=== PATIENT | female | born 1975 | race Caucasian/White ===

== ENCOUNTER 2021-08-11 13:18 | Outpatient (CLI) | payer OTHER, SELFPAY ==
--- NOTE | 2021-08-11 13:20 | ECG_ITS ---
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 Measurements Intervals [place] Rate: 84 P: 56 ID: [id number] QRS: 66 QRSD: 82 T: 46 QT: 367 QTc: 434 Interpretive Statements SINUS RHYTHM INTERPRETATION BASED ON A DEFAULT AGE OF 40 YEARS No previous ECG available for comparison Electronically Signed On 08-11-2021 23:07:01 CDT by Rosa Robles M.D. [id number]
== END 2021-08-11 13:19 | disposition home or self-care (01) ==
PROVIDERS: Visit Provider Internal Medicine
DX: E03.9 Hypothyroidism, unspecified (principal)
CPT/HCPCS: 36415; 72202; 73120; 73620; 80053; 82550; 82784; 83516; 84100; 84443; 85025; 85651; 86140; 86160; 86162; 86200; 86235; 86255; 86376; 86704; 86803; 87340; 93005

== ENCOUNTER → 2021-10-17 08:04 | Outpatient (BNVA) | payer MEDICAID, SELFPAY | PROVIDERS: Referring Provider Internal Medicine; Visit Provider Internal Medicine | DX: E03.9 Hypothyroidism, unspecified (principal); E03.8 Other specified hypothyroidism; E06.3 Autoimmune thyroiditis; R13.10 Dysphagia, unspecified; H53.2 Diplopia; F17.200 Nicotine dependence, unspecified, uncomplicated | CPT/HCPCS: 99204 ==

== ENCOUNTER → 2021-10-17 12:06 | Outpatient (BNVA) | payer MEDICAID, SELFPAY | PROVIDERS: Visit Provider Internal Medicine Pulmonary Disease | DX: R06.09 Other forms of dyspnea (principal); R91.8 Other nonspecific abnormal finding of lung field; R76.8 Other specified abnormal immunological findings in serum; G47.19 Other hypersomnia; M05.79 Rheumatoid arthritis with rheumatoid factor of multiple sites without organ or systems involvement; Z82.49 Family history of ischemic heart disease and other diseases of the circulatory system; F17.210 Nicotine dependence, cigarettes, uncomplicated | CPT/HCPCS: 99204 ==

== ENCOUNTER → 2021-11-09 08:47 | Outpatient (BNVA) | payer MEDICAID, SELFPAY | PROVIDERS: Visit Provider Internal Medicine | DX: M05.79 Rheumatoid arthritis with rheumatoid factor of multiple sites without organ or systems involvement (principal); R13.10 Dysphagia, unspecified; R76.8 Other specified abnormal immunological findings in serum; E06.3 Autoimmune thyroiditis; Z11.1 Encounter for screening for respiratory tuberculosis | CPT/HCPCS: 36415; 80053; 82657; 82955; 85025; 85651; 86480; 99214 ==

== ENCOUNTER 2021-11-30 12:51 | Outpatient (CLI) | payer MEDICAID, SELFPAY ==
--- NOTE | 2021-11-30 13:37 | PFTS_ITS ---
Date of Study:11/30/21 Date of Dictation: MECHANICS: Forced vital capacity (FVC) is reduced. Forced expiratory volume in one second (FEV1) is reduced. FEV1/FVC is normal. FLOW VOLUME LOOP: Mild scooping. LUNG VOLUMES: Total lung capacity (TLC) is normal. Residual volume (RV) is normal. DIFFUSING CAPACITY FOR CARBON MONOXIDE: Mildly reduced. INTERPRETATION: The postbronchodilator spirometry is consistent with mild restriction. There is a significant postbronchodilator response. Lung volumes are normal. The constellation is consistent with nonspecific ventilatory limitations. Gas exchange (DLCO) is mildly reduced. MTDD
--- NOTE | 2021-11-30 17:30 | CT_ITS ---
WS: [id number] CT CHEST CT-HIGH RESOLUTION, NONCONTRAST. HISTORY: Interstitial lung disease. Technique: High-resolution chest CT is performed in inspiration, expiration, supine and prone positio benny. All CT scans at [facility] use at least one of these dose optimization techniques: automated exposure control; mA and/or kV adjustment per patient size (includes targeted exams where dose is mat ched to clinical indication); or iterative reconstruction. DLP: 2687.93 mGy.cm COMPARISON: None. Findings: Mild hyperinflated lungs. Single frontal lobe subpleural cysts are noted in the upper lung amor bilaterally but greatest on the RIGHT. Most typical for paraseptal emphysema. There are additi onal multiple small pulmonary nodules and pleural-based nodules. Pleural-based nodules in the RIGHT u pper and RIGHT lower thorax. Additional 4 mm parenchymal nodule medial RIGHT lower lobe. The largest nodule measures 10 mm and is subpleural at the RIGHT lung base. No air trapping. No bronchiectasis or honeycombing. No pneumonia. There are multiple small lymph nodes within the anterior mediastinum consistent with small lymph node s. Numerous small AP window lymph nodes. Small bilateral axillary lymph nodes. Small retrocrural lymp h nodes. The largest measures 8 mm on the RIGHT near the diaphragmatic surface. The liver and spleen are enlarged. The liver and spleen are incompletely included on this examination . There are multiple nodules near the GE junction and extending towards the celiac axis. I suspect th is is probably varicosities have not lymph nodes. Prior cholecystectomy. Nonobstructing 5 mm calcific ation upper pole LEFT kidney. CT/CT chest wo con [id number] Impression: 1. Paraseptal emphysema upper lobes. 2. No evidence for UIP. No bronchiectasis or honeycombing. 3. RIGHT upper and lower lobe subpleural and parenchymal nodules. The largest is 10 mm. No prior studies for comparison. Recommend [address] follow-up with IV contrast. 4. Numerous anterior mediastinal small lymph nodes. Additional small lymph nod es continue into the AP window. Small retrocrural lymph nodes. Evaluation for p ossible lymphoma should be considered. 5. Marked enlargement of the liver and spleen, incompletely included on this e xamination. Additional multiple small nodules at the GE junction which I suspec t are varicosities and may be related to cirrhosis and portal venous hypertensi on.
== END 2021-11-30 12:52 | disposition home or self-care (01) ==
PROVIDERS: Visit Provider Internal Medicine Pulmonary Disease
DX: R76.8 Other specified abnormal immunological findings in serum (principal); R91.8 Other nonspecific abnormal finding of lung field; J84.9 Interstitial pulmonary disease, unspecified; J98.4 Other disorders of lung; J43.8 Other emphysema; R16.2 Hepatomegaly with splenomegaly, not elsewhere classified; J45.909 Unspecified asthma, uncomplicated; R06.00 Dyspnea, unspecified
CPT/HCPCS: 71250; 94060; 94618; 94726; 94729; 99204

== ENCOUNTER 2021-12-04 05:26 | Outpatient (CLI) | payer MEDICAID, SELFPAY ==
--- NOTE | 2021-12-04 | ECG_ITS ---
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 Interpretive Statements NAME OF STUDY: LEXISCAN SESTAMIBI STRESS TEST INDICATION: Dyspnea on exertion PROCEDURE: At the baseline, the blood pressure was 147/93 mmHg with a heart rate of 85 bpm. The electrocardiogram showed sinus rhythm, normal axis with normal ST and T's. The Lexiscan was infused over a period of 20 seconds. A total of 0.4 milligrams of Lexiscan was infused. The stress phase was continued for a total of 5 minutes. Heart rate at the end of the stress phase was 97 bpm with a blood pressure of 145/82 mmHg. The EKG at the peak infusion revealed sinus rhythm with no significant ST-T wave changes. The study was terminated due to protocol completion. Sestamibi was injected 20 seconds after the Lexiscan infusion. Blood pressure at the end of the recovery phase was 134/88 mmHg with a heart rate of 96 beats per minute. CONCLUSION: 1. Normal EKG response to LexiScan infusion. 2. No LexiScan induced chest pain or cardiac arrhythmia. 3. Normal blood pressure and heart rate response. 4. Sestamibi/sestamibi perfusion scan pending; see separate report. Electronically Signed On 12-06-2021 16:21:16 CDT by Rosa Robles M.D. [id number]
[2021-12-04 07:21] VITALS: BMI 36.0
--- NOTE | 2021-12-04 08:20 | NMCV_ITS ---
NM carl perf SPECT r/s* [id number] Jeannette Quinteros Age: 46 Gender: F : 1975 Exam Date: 12/04/2021 08:29 Ordering Phys: Dann Montes MD Technologist: JON Torres Exam Location: [facility] Indications: SHORTNESS OF BREATH STRESS TEST Please [facility] IMAGE PROTOCOL Rest/Stress 1 Lexiscan Day Radiopharmaceutical Dose (mCi) Administration Site Administered by Rest: Tc-99m 10.7 IV JON Solo Sestamibi Stress:Tc-99m 32.5 IV JON Solo Sestamibi Rest: 60 Discovery 630 Stress: 30 Discovery 630 0.4mg Lexiscan. Images obtained in supine and prone position. SPECT RESULTS Technical Quality: Excellent Raw Data Analysis: Normal Image Corrections: No attenuation or motion correction applied Summed Stress Score: 0 Summed Rest Score: 0 Summed Difference Score: 0 PERFUSION FINDINGS SPECT images demonstrate homogeneous tracer distribution throughout the myocardium. FUNCTIONAL RESULTS (calculated via Gated SPECT) Stress Image LV EF (%): 87 Stress EDV (mL):82 TID: 0.83 Stress ESV (mL):11 FUNCTIONAL FINDINGS: The left ventricle is normal in size. Transient Ischemia Dilatation of 0.83. The left ventricular ejection fraction is normal with a value of 87%. There is hyperdynamic left ventricular wall thickening. IMPRESSIONS 1. Myocardial perfusion imaging is normal. 2. Overall left ventricular systolic function is hyperdynamic without regional wall motion abnormalities,LVEF=87%. 3. No EKG changes with Lexiscan infusion. Refer to separate report for details. Rosa Robles MD (Electronically Signed) Final Date: 06 December 2021 16:21 S
[2021-12-04] MEDS: regadenoson 0.4 Mg/5 ml Syringe IVP (09:06)
[2021-12-04 09:17] VITALS: BP 134/88; PULSE 86
[2021-12-08 12:51] LABS: Basophils # 0.1 10^3/uL (0.0-0.1); Eosinophils # 0.1 10^3/uL (0.0-0.8); Eosinophils % 1.5 %; Hemoglobin 13.1 g/dL (11.5-15.3); Lymphocytes # 1.2 10^3/uL (0.8-4.8); Lymphocytes % 18.4 %; Mean Corpuscular Hemoglobin 26.1 pg (28.0-34.0); Mean Corpuscular Volume 81.8 fl (81-99); Mean Platelet Volume 10.1 fL (7.4-10.4); Monocytes # 0.5 10^3/uL (0.2-0.9); Monocytes % 7.1 %; Neutrophils # 4.55 10^3/uL (1.8-7.7); Neutrophils % 70.5 %; Nucleated Red Blood Cells % 0 %; Platelet Count 219 10^3/cmm (130-400); Red Blood Count 5.01 10^6/uL (4.1-5.3); Red Cell Distribution Width 15.8 % (12.1-15.1); White Blood Count 6.5 10^3/uL (4.0-10.0)
[2021-12-11 18:27] LABS: Immunoglobulin E 18 kU/L (<OR=114)
[2021-12-11 18:38] LABS: Alternaria Alternata (M6) Ige <0.10 kU/L; Alternaria Class 0; Bermuda Class 0; Bermuda Grass (G2) Ige <0.10 kU/L; Cat Dander (E1) Ige <0.10 kU/L; Cat Dander Class 0; Common Ragweed (Short) (W1) Ig <0.10 kU/L; D. Farinae Class 0; Dermatophagoides Class 0; Dermatophagoides Farinae (D2) <0.10 kU/L; Dermatophagoides Pteronyssinus <0.10 kU/L; Dog Dander (E5) Ige <0.10 kU/L; Dog Dander Class 0; Elm (T8) Ige <0.10 kU/L; Elm Class 0; English Plantain (W9) Ige <0.10 kU/L; English Plantain Class 0; House Dust (Greer) (H1) Ige <0.10 kU/L; House Dust (Hollister- Stier) <0.10 kU/L; House Dust Class 0; Immunoglobulin E 15 kU/L (<OR=114); Johnson Grass (G10) Ige <0.10 kU/L; Johnson Grass Cl 0; June Grass Class 0; June Grass(Kentucky Blue) (G8) <0.10 kU/L; Lamb'S Quarters (Goose Foot) <0.10 kU/L; Lamb'S Quarters Class 0; Maple (Box Elder) (T1) Ige <0.10 kU/L; Maple Class 0; Meadow Fescue (G4) Ige <0.10 kU/L; Meadow Fescue Class 0; Mucor Racemosus Class 0; Oak (T7) Ige <0.10 kU/L; Oak Class 0; Orchard Grass (Cocksfoot) (G3) <0.10 kU/L; Penicillium Class 0; Penicillium Notatum (M1) Ige <0.10 kU/L; Perennial Rye Grass (G5) Ige <0.10 kU/L; Perennial Rye Grass Class 0; Ragweeed Class 0; Rough Marsh Elder (W16) Ige <0.10 kU/L; Rough Marsh Elder Class 0; Sweet Vernal Class 0; Sweet Vernal Grass (G1) Ige <0.10 kU/L; Timothy Grass (G6) Ige <0.10 kU/L; Timothy Grass Class 0
[2021-12-13 18:42] LABS: Aspergillus Fumigatus, Igg Ab, 47.2 mg/L (<=102)
== END 2021-12-04 05:27 | disposition home or self-care (01) ==
LOC: CDL 05:28
PROVIDERS: Visit Provider Internal Medicine Pulmonary Disease
DX: R06.09 Other forms of dyspnea (principal); R06.02 Shortness of breath; J45.909 Unspecified asthma, uncomplicated
CPT/HCPCS: 78452; 93017; A9500; J2785

== ENCOUNTER → 2021-12-08 10:29 | Outpatient (BNVA) | payer MEDICAID, SELFPAY | PROVIDERS: Visit Provider Internal Medicine Pulmonary Disease | DX: R06.09 Other forms of dyspnea (principal); E06.3 Autoimmune thyroiditis; M05.79 Rheumatoid arthritis with rheumatoid factor of multiple sites without organ or systems involvement; R76.8 Other specified abnormal immunological findings in serum; R91.8 Other nonspecific abnormal finding of lung field; Z82.49 Family history of ischemic heart disease and other diseases of the circulatory system; F17.210 Nicotine dependence, cigarettes, uncomplicated; R06.83 Snoring | CPT/HCPCS: 82785; 85025; 86003; 99214 ==

== ENCOUNTER 2022-02-20 12:48 | Outpatient (CLI) | payer MEDICAID, SELFPAY ==
--- NOTE | 2022-02-20 12:00 | CTR_ITS ---
PROCEDURE INFORMATION: Exam: CT Chest With Contrast; Diagnostic Exam date and time: 02/20/2022 1:15 PM Age: 46 years old Clinical indication: Abnormal findings; Lung mass or nodule; Not specified; Patient HX: 3 month follow up lung nodules; Additional info: 3 month f/u lung nodules TECHNIQUE: Imaging protocol: Diagnostic computed tomography of the chest with contrast. Radiation optimization: All CT scans at this facility use at least one of these dose optimization techniques: automated exposure control; mA and/or kV adjustment per patient size (includes targeted exams where dose is matched to clinical indication); or iterative reconstruction. Contrast material: OMNIPAQUE 350; Contrast volume: 95 ml; Contrast route: INTRAVENOUS (IV); COMPARISON: CT chest wo con [id number] 11/30/2021 2:53 PM RADIATION DOSE METRICS: Total DLP (mGy-cm): 744.57 FINDINGS: Thyroid: Mild nodularity within the thyroid gland, unchanged. Lungs: Mild upper lobe emphysematous changes more pronounced on the right, stable. 10 mm pleural base nodule right paravertebral gutter, stable 7 mm subpleural nodule right mid lung zone 2 smaller rounded pulmonary nodules right lower lobe largest which measures 5 mm both stable. Pleural spaces: See Lungs finding. Heart: Unremarkable. No cardiomegaly. No pericardial effusion. Lymph nodes: Numerous nodules within the anterior mediastinum presumed represent lymphadenopathy, stable. Mild upper abdominal lymphadenopathy, stable. Vasculature: Unremarkable. No aortic aneurysm. Liver: Moderate hepatomegaly and splenomegaly, unchanged. Bones/joints: Unremarkable. No acute fracture. Soft tissues: Unremarkable. CT/CT chest w con* [id number] IMPRESSION: 1. Stable 1 cm pleural based nodule and smaller subpleural pulmonary nodules right lung measuring up to 7 mm stable. Recommend a repeat CT chest in 6 months for continued surveillance. 2. Mild anterior mediastinal lymphadenopathy and upper abdominal lymphadenopathy stable from previous exam in should also be reassessed on follow-up study in 6 months. 3. Hepatosplenomegaly unchanged.
[2022-02-20] MEDS: iohexol 350 mg/mL 500 mL Btl (per mL) IV (13:19)
== END 2022-02-20 12:49 | disposition home or self-care (01) ==
LOC: RAD 12:49
PROVIDERS: Visit Provider Internal Medicine Pulmonary Disease
DX: M25.50 Pain in unspecified joint (principal); R76.8 Other specified abnormal immunological findings in serum; E03.8 Other specified hypothyroidism; E06.3 Autoimmune thyroiditis; R06.09 Other forms of dyspnea; F17.210 Nicotine dependence, cigarettes, uncomplicated; I73.81 Erythromelalgia
CPT/HCPCS: 71260; 99214; Q9967

== ENCOUNTER → 2022-05-21 13:15 | Outpatient (BNVA) | payer MEDICAID, SELFPAY | PROVIDERS: Visit Provider Internal Medicine | DX: R76.8 Other specified abnormal immunological findings in serum (principal); M25.50 Pain in unspecified joint; E03.8 Other specified hypothyroidism; E06.3 Autoimmune thyroiditis; R06.09 Other forms of dyspnea; F17.200 Nicotine dependence, unspecified, uncomplicated | CPT/HCPCS: 36415; 80053; 85025; 85651; 86140; 99214 ==

== ENCOUNTER 2022-09-14 10:27 | Outpatient (CLI) | payer MEDICAID, SELFPAY ==
--- NOTE | 2022-09-14 10:33 | CT_ITS ---
WS: [id number] CT CHEST TECHNIQUE: Noncontrast CT of the chest with coronal and sagittal reformatted images. CLINICAL INFORMATION: lung screening COMPARISON: February 20, 2022 DLP: 386.[address] scans at [facility] use at least one of these dose optimization techniques: automated e xposure control; mA and/or kV adjustment per patient size (includes targeted exams where dose is matc hed to clinical indication); or iterative reconstruction. FINDINGS:Previously described RIGHT upper and lower lobe subpleural and parenchymal nodules are uncha nged largest measures 10 mm. No acute pulmonary infiltrates. No focal pneumonia or pleural fluid. Nor mal caliber thoracic aorta. No axillary lymphadenopathy. Moderate chronic emphysematous changes with paraseptal emphysema in the upper lobes. Numerous small a nterior mediastinal lymph nodes appear stable since November 30, 2021. Partially visualized hepatomegaly and splenomegaly. Cholecystectomy clips. Adrenal glands are normal. Partially visualized upper abdominal varicosities. Recommend correlation with portal venous hypertens ion. Hepatomegaly and splenomegaly. Dilated azygos vein CT/CT chest wo con [id number] IMPRESSION: 1. Multiple RIGHT subpleural and pleural-based nodules the largest measuring 1 0 to 11 mm in the RIGHT lower lobe are unchanged. Recommend continued surveilla nce with six-month follow-up chest CT. 2. Mild chronic emphysematous changes with periseptal emphysema in the upper l obes. 3. Again seen are numerous anterior mediastinal lymph nodes which are unchange d. 4. Varicosities visualized in the upper abdomen with hepatomegaly and splenome eh suspicious for portal venous hypertension. Recommend correlation with live r function tests.
== END 2022-09-14 10:28 | disposition home or self-care (01) ==
PROVIDERS: Visit Provider Internal Medicine Pulmonary Disease
DX: Z12.2 Encounter for screening for malignant neoplasm of respiratory organs (principal); F17.210 Nicotine dependence, cigarettes, uncomplicated; R91.8 Other nonspecific abnormal finding of lung field; J43.8 Other emphysema; R16.2 Hepatomegaly with splenomegaly, not elsewhere classified; E03.8 Other specified hypothyroidism; E06.3 Autoimmune thyroiditis; E04.1 Nontoxic single thyroid nodule; R13.10 Dysphagia, unspecified; H53.2 Diplopia; Z79.890 Hormone replacement therapy; Z79.4 Long term (current) use of insulin
CPT/HCPCS: 36415; 71250; 80053; 80061; 82044; 82670; 83001; 83002; 83036; 83516; 84439; 84443; 99214

== ENCOUNTER 2022-10-01 13:34 | Outpatient (CLI) | payer BC, SELFPAY ==
--- NOTE | 2022-10-01 14:15 | US_ITS ---
WS: [id number] ULTRASOUND THYROID TECHNIQUE: Ultrasound of the thyroid. CLINICAL INFORMATION: nodule COMPARISON: None. FINDINGS: Thyroid: Heterogeneous thyroid echotexture bilaterally. Somewhat diminutive thyroid volume for patien t this age Right thyroid lobe: 4.3 cm x 0.9 cm x 1.2 cm Left thyroid lobe: 3.6 cm x 1.3 cm x 1.0 cm. Hypoechoic left thyroid nodules measuring 6.2 x 6.1 x 8.3 mm in the mid thyroid and 10.0 x 7.6 x 9.1 mm in the inferior thyroid. Isthmus: 0.4 mm. Cervical lymphadenopathy: None. IMPRESSION: 1. Heterogeneous thyroid echotexture bilaterally. Somewhat diminutive thyroid volume for patient thi s age 2. 2 hypoechoic left thyroid nodules measuring up to 10 mm. Recommend 12-month follow-up.
== END 2022-10-01 13:35 | disposition home or self-care (01) ==
PROVIDERS: Visit Provider Internal Medicine
DX: E04.1 Nontoxic single thyroid nodule (principal)
CPT/HCPCS: 76536

== ENCOUNTER 2023-03-25 11:16 | Outpatient (CLI) | payer BC, SELFPAY ==
--- NOTE | 2023-03-25 13:00 | CTR_ITS ---
PROCEDURE INFORMATION: Exam: CT Chest Without Contrast; Diagnostic Exam date and time: 03/25/2023 1:10 PM Age: 47 years old Clinical indication: Condition or disease; Lung condition and disease; Pulmonary nodule, solitary; Additional info: Pulmonary nodules follow up, please schedule chest CT feb 2023 TECHNIQUE: Imaging protocol: Diagnostic computed tomography of the chest without contrast. Radiation optimization: All CT scans at this facility use at least one of these dose optimization techniques: automated exposure control; mA and/or kV adjustment per patient size (includes targeted exams where dose is matched to clinical indication); or iterative reconstruction. COMPARISON: CT chest wo con [id number] 09/14/2022 10:54 AM RADIATION DOSE METRICS: Total DLP (mGy-cm): 478.52 FINDINGS: Lungs: Unchanged right upper and lower lobe subpleural nodules measuring up to 10 mm on series 4, image 25. No new or enlarging pulmonary nodules. [id number] emphysematous changes. Pleural spaces: No pneumothorax or pleural effusion. Heart: No significant coronary calcifications. No pericardial effusion. Lymph nodes: Unchanged anterior mediastinal nodules/nodes. Vasculature: No aortic aneurysm. Bones/joints: No acute findings Soft tissues: Upper abdominal varices. Probable small left renal calculus. CT/CT chest wo con [id number] IMPRESSION: Unchanged pulmonary nodules and anterior mediastinal lymph nodes. No new/acute chest findings.
== END 2023-03-25 11:17 | disposition home or self-care (01) ==
LOC: RAD 11:16
PROVIDERS: Visit Provider Internal Medicine Pulmonary Disease
DX: R91.8 Other nonspecific abnormal finding of lung field (principal); E11.9 Type 2 diabetes mellitus without complications; E03.8 Other specified hypothyroidism; E06.3 Autoimmune thyroiditis; R13.10 Dysphagia, unspecified; B37.31 Acute candidiasis of vulva and vagina; Z79.890 Hormone replacement therapy
CPT/HCPCS: 36415; 71250; 80053; 80061; 82044; 83036; 84439; 84443; 99214